=== PATIENT | male | born 1965 | race Caucasian/White ===

== ENCOUNTER → 2017-09-04 | Outpatient (CLI) | payer BC ==
--- NOTE | 2017-09-04 11:47 | XR ---
EXAMINATION TYPE: XR ribs bilat w pa chest xray DATE OF EXAM: 09/04/2017 COMPARISON: NONE HISTORY: Pain TECHNIQUE: Frontal view the chest and AP views of the ribs are submitted. FINDINGS: Frontal view of the chest demonstrates a previous right clavicular deformity. Lungs are clement ar. No pleural effusion, pneumothorax, or focal pneumonia. Rib cage is intact. IMPRESSION: No acute displaced rib fracture. If symptoms persist correlate with bone scan.
== END ==
LOC: RADXRYALE 11:13
PROVIDERS: ATTEND Internal Medicine
DX: R07.81 Pleurodynia (principal)
CPT/HCPCS: 71111

== ENCOUNTER → 2017-09-11 | Outpatient (CLI) | payer BC ==
--- NOTE | 2017-09-11 11:36 | NM ---
EXAMINATION TYPE: NM bone 3 phase DATE OF EXAM: 09/11/2017 COMPARISON: Chest x-ray with right-sided rib x-rays from one week ago. HISTORY: Pain posterior lateral lower right ribs. Triple phase bone scintigraphy was performed following the injection of 26.6 mCi Tc 99m MDP. Immedia te images and 3 hours post injection images acquired. Imaging is performed of the thorax. FINDINGS: There is no significant focal abnormal three-phase accumulation of radiotracer to suggest acute osseo us fracture or other significant abnormality with particular attention to the right lower ribs at are a of clinical concern. IMPRESSION: As above.
== END | disposition home or self-care (01) ==
LOC: RADNMMAIN 07:05
PROVIDERS: ATTEND Internal Medicine
DX: R07.81 Pleurodynia (principal)
CPT/HCPCS: 78315; A9503

== ENCOUNTER → 2017-09-19 | Outpatient (CLI) | payer BC ==
--- NOTE | 2017-09-20 07:12 | ECHOF ---
Referral Reason:R06.02 shortness of breath MEASUREMENTS -------- HEIGHT: 177.8 cm WEIGHT: 93.0 kg BP: 147/95 RVIDd: 3.3 cm (< 3.3) IVSd: 1.0 cm (0.6 - 1.1) LVIDd: 4.0 cm (3.9 - 5.3) LVPWd: 1.1 cm (0.6 - 1.1) IVSs: 1.9 cm LVIDs: 2.5 cm LVPWs: 1.6 cm LA Diam: 3.0 cm (2.7 - 3.8) LAESV Index (A-L): 19.86 ml/m Ao Diam: 3.2 cm (2.0 - 3.7) AV Cusp: 2.1 cm (1.5 - 2.6) MV EXCURSION: 18.221 mm (> 18.000) MV EF SLOPE: 71 mm/s (70 - 150) EPSS: 0.3 cm MV E Titi: 0.91 m/s MV DecT: 175 ms MV A Titi: 1.01 m/s MV E/A Ratio: 0.90 RAP: 5.00 mmHg RVSP: 31.59 mmHg FINDINGS -------- Sinus rhythm. This was a technically good study. The left ventricular size is normal. There is borderline concentric left ventricular hypertrophy. Overall left ventricular systolic function is normal with, an EF between 60 - 65 %. The right ventricle is normal in size. Normal LA size by volume 22+/-6 ml/m2. The right atrium is normal in size. The aortic valve is trileaflet and appears structurally normal. The mitral valve is normal. Trace tricuspid regurgitation present. Right ventricular systolic pressure is normal at < 35 mmHg. There is no pulmonic regurgitation present. The aortic root size is normal. Normal inferior vena cava with normal inspiratory collapse consistent with estimated right atrial pre ssure of 5 mmHg. There is no pericardial effusion. CONCLUSIONS -------- 1. Sinus rhythm. 2. This was a technically good study. 3. The left ventricular size is normal. 4. There is borderline concentric left ventricular hypertrophy. 5. Overall left ventricular systolic function is normal with, an EF between 60 - 65 %. 6. The right ventricle is normal in size. 7. Normal LA size by volume 22+/-6 ml/m2. 8. The right atrium is normal in size. 9. The aortic valve is trileaflet and appears structurally normal. 10. The mitral valve is normal. 11. Trace tricuspid regurgitation present. 12. Right ventricular systolic pressure is normal at < 35 mmHg. 13. There is no pulmonic regurgitation present. 14. The aortic root size is normal. 15. Normal inferior vena cava with normal inspiratory collapse consistent with estimated right atrial pressure of 5 mmHg. 16. There is no pericardial effusion. KEY ACCOUNT DIRECTOR: Phylicia Rachel RDCS
--- NOTE | 2017-09-20 07:31 | EST ---
EXERCISE STRESS DATE OF SERVICE: 09/19/2017 AGE: 51 SEX: Male HT: 5'10" WT: 205 pounds PROTOCOL: Kwabena STAGE: V DURATION OF EXERCISE: 12 minutes 49 seconds HEART RATE REST: 63 BLOOD PRESSURE REST: 147/55 MAXIMUM HEART RATE ACHIEVED: 167 MAXIMUM BLOOD PRESSURE: 206/87 85% MPHR: 145 100% MPHR: 171 METS: 12.9 INDICATIONS: CLINICAL INFORMATION: Baseline EKG revealed a normal sinus rhythm without significant ST-T changes. Patient walked on a standard Kwabena protocol for 12 minutes 49 seconds achieved a maximal heart rate of 167 beats per minute which is more than 85% of predicted maximal. He did not have any angina or any arrhythmia. EKG revealed upsloping nonspecific ST-segment changes, not suggestive of angina pectoris. In the recovery period, upsloping ST- segment changes were noted unassociated with angina and these seemed to persist into 5 minutes into the recovery period with inferolateral ST-segment depression, raising the possibility of ischemia. This patient may have underlying hypertension and the possibility of this being a false-positive finding should also be considered. FINAL IMPRESSION: 1. Excellent exercise capacity without subjective symptoms of angina or arrhythmia. 2. By EKG criteria, this is a positive stress test because of ST-segment depression which was evident at peak exercise and persisted into the recovery period. However, patient did not have any anginal symptoms. 3. If ischemia is strongly suspected, I would recommend a stress echo or a stress Cardiolite scan in view of the dichotomy between his subjective symptoms and EKG changes. MMMARKL / JAVIERN: [id number] /
== END | disposition home or self-care (01) ==
LOC: RADNMMAIN 11:10
PROVIDERS: ATTEND Internal Medicine
DX: I51.7 Cardiomegaly (principal)
CPT/HCPCS: 93017; 93306

== ENCOUNTER → 2019-03-21 | Outpatient (CLI) | payer BC ==
--- NOTE | 2019-03-21 15:19 | US ---
EXAMINATION TYPE: US thyroid st tissue head/neck DATE OF EXAM: 03/21/2019 COMPARISON: NONE CLINICAL HISTORY: R22.1 Swollen neck. Intermittent neck swelling x 1 month GLAND SIZE: Right Lobe: 4.9 x 1.4 x 2.2 cm Overall Parenchyma: homogenous Left Lobe: 4.6 x 1.5 x 1.7 cm Overall Parenchyma: homogeneous Isthmus Thickness: 0.4 cm NODULES RIGHT: # of nodules measured on right: 0 LEFT: # of nodules measured on left: 0 ISTHMUS: # of nodules measured in the isthmus: 0 Bilateral neck scanned, 1.1 x 0.5 x 0.4cm hyperechoic area seen in left neck inferior to left thyroid lobe. Homogeneous normal-sized thyroid without discrete nodule. Hyperechoic nodule posterior inferior anais n of left thyroid lobe could reflect parathyroid adenoma in the appropriate clinical setting, correla te clinically. IMPRESSION: As above.
--- NOTE | 2019-03-21 15:24 | XR ---
EXAMINATION TYPE: XR cervical spine limited DATE OF EXAM: 03/21/2019 TECHNIQUE: Frontal, lateral, and open mouth view of the cervical spine are obtained. HISTORY: M54.2 CERVICALGIA COMPARISON: None FINDINGS: The cervical spine is visualized in its entirety from C1 thru the top of T1 level, there i s loss of normal cervical curvature evidence of acute fracture or dislocation. The pre-vertebral sof t tissue appears within normal limits. Slight grade 1 anterolisthesis C4 on C5. The C1-C2 articulatio n is within normal limits on the open mouth view. Vertebral body heights are maintained. Mild to mode rate disc space narrowing and anterior spurring C5-C6 level. Moderate disc space narrowing with mild to moderate anterior spurring C6-C7 level. Overlying soft tissues are unremarkable. IMPRESSION: As above.
== END | disposition home or self-care (01) ==
LOC: RADUSWWP 14:36
PROVIDERS: ATTEND Internal Medicine
DX: E04.1 Nontoxic single thyroid nodule (principal); M99.71 Connective tissue and disc stenosis of intervertebral foramina of cervical region; M43.12 Spondylolisthesis, cervical region
CPT/HCPCS: 72040; 76536

== ENCOUNTER → 2019-03-27 | Outpatient (CLI) | payer BC ==
--- NOTE | 2019-03-27 09:15 | CT ---
EXAMINATION TYPE: CT soft tissue neck w con DATE OF EXAM: 03/27/2019 COMPARISON: None HISTORY: 53-year-old male lump in neck left side TECHNIQUE: Contiguous axial scanning of the soft tissues of the neck performed with IV Contrast, neno ent injected with 100 mL of Isovue 300. Coronal/sagittal reconstructions performed. CT DLP: 735.2 mGycm Automated exposure control for dose reduction was used. FINDINGS: Visualized intracranial structures, orbits and globes, and mastoid air cells appear clear. Tiny mucos al retention cyst along the floor of the left maxillary sinus. The nasopharynx is clear. Mild hypertrophy of the tubal and palatine tonsils. Punctate calcification on the right suggests sequela of prior infection. Glottic and subglottic structures as well as the tracheal column and visualized upper lungs appear cl ear. Parotid glands appear satisfactory. There is some asymmetric prominent intraglandular dilatation within the right submandibular gland wit h central hypoechoic area measuring up to 1.3 x 1.0 cm, reference axial image 61 and sagittal images 36 and 37. Thyroid gland appears satisfactory. There is a palpable marker placed along the left anterior lower neck. No underlying solid or cystic l esion is identified. Scattered nonenlarged cervical lymph nodes on both sides of the neck. No cervical lymphadenopathy by CT size criteria. Bones: Moderate disc/endplate degenerative change mid to lower cervical spine. IMPRESSION: 1. PALPABLE MARKER PLACED ALONG THE LEFT ANTERIOR LOWER NECK. NO UNDERLYING SOLID OR CYSTIC LESION OR CERVICAL LYMPHADENOPATHY SEEN. 2. ASYMMETRIC INTRAGLANDULAR DUCTAL DILATATION WITHIN THE RIGHT SUBMANDIBULAR GLAND. NO SURROUNDING I NFLAMMATION OR ASYMMETRIC GLANDULAR ENLARGEMENT IS SEEN TO SUGGEST ANY ACTIVE SIALOADENITIS. POSSIBLE SEQUELA OF CHRONIC INFLAMMATION OR PRIOR DUCT OBSTRUCTION. CLINICALLY CORRELATE. CONSIDER 6 MONTH FO LLOW-UP TO REASSESS. 3. MILD HYPERTROPHY OF THE TUBAL AND PALATINE TONSILS.
== END | disposition home or self-care (01) ==
LOC: RADCTMAIN 07:45
PROVIDERS: ATTEND Internal Medicine
DX: D35.1 Benign neoplasm of parathyroid gland (principal); J35.1 Hypertrophy of tonsils
CPT/HCPCS: 70491; Q9967

== ENCOUNTER → 2023-09-11 | Outpatient (CLI) | payer BC ==
--- NOTE | 2023-09-11 15:21 | XR ---
EXAMINATION TYPE: XR KUB DATE OF EXAM: 09/11/2023 COMPARISON: None INDICATION: Abdomen pain TECHNIQUE: Single view abdomen FINDINGS: There is a normal bowel gas pattern. Psoas margins are normal. No organomegaly is present. IMPRESSION: 1. Unremarkable Abdomen
== END | disposition home or self-care (01) ==
LOC: RADXRYALE 14:45
PROVIDERS: ATTEND Internal Medicine
DX: R10.9 Unspecified abdominal pain (principal)
CPT/HCPCS: 74018

== ENCOUNTER 2024-04-21 07:27 | Emergency (ER) | payer BC ==
[2024-04-21 07:45] VITALS: TEMP 98.2
[2024-04-21] MEDS: PROPARACAINE 0.5% OPHTH DROPS 15 ML BTL BOTH EYES STA (08:17)
--- NOTE | 2024-04-21 08:18 | ED ---
General Adult HPI - General Chief complaint: Eye Problems Stated complaint: vision loss L eye Time Seen by Provider: 04/21/24 07:57 Source: patient Mode of arrival: ambulatory Limitations: no limitations - History of Present Illness Initial comments: Dictation was produced using [employer] dictation software. please excuse any grammatical, word or spelling errors. Chief Complaint: 58-year-old male presents emergency department with left eye blurred vision History of Present Illness: Patient is 58-year-old male presents emergency department with acute onset left eye blurred vision stated started suddenly at around 4 PM yesterday. Patient states that seems blurry to his left eye with a yellow streak that is noticeable at the 3 o'clock position. States that it is constant. Does have some reported tightness to his left eye. Denies any pain. No other complaints. The ROS documented in this emergency department record has been reviewed and con firmed by me. Those systems with pertinent positive or negative responses have been documented in the HPI. All other systems are other negative and/or noncontributory. - Related Data Allergies Allergy/AdvReac Type Severity Reaction Status Date / Time No Known Allergies Allergy Verified 04/21/24 07:45 Review of Systems ROS Statement: Those systems with pertinent positive or pertinent negative responses have been documented in the HPI. ROS Other: All systems not noted in ROS Statement are negative. Past Medical History Past Medical History: Hyperlipidemia History of Any Multi-Drug Resistant Organisms: None Reported Past Surgical History: No Surgical Hx Reported Past Psychological History: Anxiety Smoking Status: Never smoker Past Alcohol Use History: Occasional Past Drug Use History: Marijuana General Exam - General Exam Comments Initial Comments: PHYSICAL EXAM: General Impression: Alert and oriented x3, not in acute distress HEENT: Normocephalic atraumatic, extra-ocular movements intact, pupils equal and reactive to light bilaterally, mucous membranes moist. Cardiovascular: Heart regular rate and rhythm Chest: Able to complete full sentences, no retractions, no tachypnea Abdomen: abdomen soft, non-tender, non-distended, no organomegaly Musculoskeletal: Pulses present and equal in all extremities, no peripheral edema Motor: no focal deficits noted Neurological: CN II-XII grossly intact, no focal motor or sensory deficits noted Skin: Intact with no visualized rashes Psych: Normal affect and mood Limitations: no limitations Course Vital Signs 04/21/24 07:40 Temperature 98.2 F Pulse Rate 77 Respiratory 18 Rate Blood Pressure 186/120 O2 Sat by Pulse 96 Oximetry - Reevaluation(s) Reevaluation #1: 04/21/24 08:31 Visual acuity is 20-200 on the left, 20-50 on the right. 20/25 bilaterally. Left eye: Fluorescein staining shows no corneal abnormalities. Intraocular pressures are 17 Reevaluation #2: 04/21/24 09:01 Case discussed with cable ferryboat operator, Dr. Gonzales request that patient get a CT brain follow-up in his office after being discharged from the ER. Medical Decision Making - Medical Decision Making Was pt. sent in by a medical professional or institution (, PA, LATIN TEACHER, urgent care, hospital, or [facility]...) When possible be specific @ -No Did you speak to anyone other than the patient for history (EMS, parent, family, police, friend...)? What history was obtained from this source @ -No Did you review nursing and triage notes (agree or disagree)? Why? @ -I reviewed and agree with nursing and triage notes Were old charts reviewed (outside hosp., previous admission, EMS record, old EKG, old radiological studies, urgent care reports/EKG's, [facility] records)? Report findings @ -No old charts were reviewed Differential Diagnosis (chest pain, altered mental status, abdominal pain women, abdominal pain men, vaginal bleeding, musculoskeletal, weakness, fever, dyspnea, syncope, headache, dizziness, GI bleed, back pain, seizure, CVA, palpatations, mental health)? @ -Retinal detachment, conjunctivitis, retinal hemorrhage EKG interpreted by me (3pts min.). @ -None done X-rays interpreted by me (1pt min.). @ -None done CT interpreted by me (1pt min.). @ -CT brain is unremarkable for any acute processes U/S interpreted by me (1pt. min.). @ -None done What testing was considered but not performed or refused? (CT, X-rays, U/S, labs)? Why? @ -None What meds were considered but not given or refused? Why? @ -None Was smoking cessation discussed for >3mins.? @ -No Were there social determinants of health that impacted care today? How? (Homelessness, low income, unemployed, alcoholism, drug addiction, transportation, low edu. Level, literacy, decrease access to med. care, longterm, rehab)? @ -No Was there de-escalation of care discussed even if they declined (Discuss DNR or withdrawal of care, Hospice)? DNR status @ -No What co-morbidities impacted this encounter? (DM, HTN, Smoking, COPD, CAD, Cancer, CVA, ARF, Chemo, Hep., AIDS, mental health diagnosis, sleep apnea, morbid obesity)? @ -None Was patient admitted / discharged? Hospital course, mention meds given and route , prescriptions, significant lab abnormalities, going to OR and other pertinent info. @ -58-year-old male presents to the emergency department for acute vision loss. Vital signs upon arrival are within acceptable limits. Patient has no symptoms of hypertensive emergency. Physical examination is benign. Decreased vision in the left eye. Case discussed with ophthalmology as described above. Patient discharged told to go directly to ophthalmology office. Suspect intraocular cause of vision loss. Did you discuss the management of the patient with other professionals (professionals i.e. , PA, LATIN TEACHER, lab, RT, psych nurse, director of social work, product marketing engineer, teacher, parking regulation enforcement officer, case maker)? Give summary @ -See above Was critical care preformed (if so, how long)? @ -No Undiagnosed new problem with uncertain prognosis? @ -No Drug Therapy requiring intensive monitoring for toxicity (Heparin, Nitro, Insulin, Cardizem)? @ -No Were any procedures done? @ -No Diagnosis/symptom? Acute, or Chronic, or Acute on Chronic? Uncomplicated (without systemic symptoms) or Complicated (systemic symptoms)? @ -Blurred vision Side effects of treatment? @ -No Exacerbation, Progression, or Severe Exacerbation? @ -No Poses a threat to life or bodily function? How? (Chest pain, USA, VT, pneumonia, PE, COPD, DKA, ARF, appy, cholecystitis, CVA, Diverticulitis, Homicidal, Suicidal, threat to staff... and all critical care pts) @ -yes Disposition Clinical Impression: Vision changes Disposition: HOME SELF-CARE Condition: Fair Instructions (If sedation given, give patient instructions): Blurred Vision (ED) Additional Instructions: go directly to Dr. Groves's office to see Dr. Gonzales. Is patient prescribed a controlled substance at d/c from ED?: No Referrals: Albaro Groves MD [STAFF PHYSICIAN] - 1-2 days Time of Disposition: 09:26
--- NOTE | 2024-04-21 09:19 | CT ---
EXAMINATION TYPE: CT brain wo con CT DLP: 1213.4 mGycm, Automated exposure control for dose reduction was used. DATE OF EXAM: 04/21/2024 9:12 AM COMPARISON: CT soft tissue neck 03/27/2019 CLINICAL INDICATION:Male, 58 years old with history of vision changes, LEFT EYE BLURRED VISION TECHNIQUE: Brain: Multiple axial CT images of the brain were obtained without IV contrast. . Coronal and sagitta l reformats reviewed. FINDINGS: Brain: Extra-axial spaces: No abnormal extra-axial fluid collections. Falx calcifications anteriorly. Ventricular system: Within normal limits Cerebral parenchyma: No acute intraparenchymal hemorrhage or mass effect. The bryant-white junction is well differentiated. Cerebellum: Unremarkable. Mass effect: No evidence of midline shift. Intracranial vasculature: unremarkable Soft tissues: Normal. Calvarium/osseous structures: No depressed skull fracture. Paranasal sinuses and mastoid air cells: Clear Visualized orbits: Orbital contents are intact. IMPRESSION: No acute intracranial process. [facility], , 04/21/2024 9:17 AM
[2024-04-21 09:40] VITALS: BP 162/110; PULSE 78; RESP 20
== END 2024-04-21 09:46 | disposition home or self-care (01) ==
LOC: EC 07:27
DX: H54.62 Unqualified visual loss, left eye, normal vision right eye (principal)
CPT/HCPCS: 70450; 99284